=== PATIENT | male | born 1955 | race Caucasian/White ===

== ENCOUNTER 2021-04-16 08:46 | Emergency (ER) | payer MEDICARE, OTHER, SELFPAY ==
--- NOTE | ~2021-04-16 | XR_ITS ---
XR finger 5th LT min 2V DATE: 04/16/2021 10:20 INDICATION: Fell on ice on 04/15/2021. 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 No fracture or dislocation, periosteal reaction or bone destruction is detected. IMPRESSION: No fracture or dislocation is detected Reviewed, dictated and finalized at location A. [employer]
[2021-04-16 09:06] VITALS: BP 181/78; PULSE 86; RESP 20; TEMP 36.6; O2SAT 98
--- NOTE | 2021-04-16 10:35 | ED.UPPEXIN ---
HPI - Extremity Injury (Upper) General Chief Complaint: Extremity Injury, Upper Stated Complaint: fall/left hand injury Time Seen by Provider: 04/16/21 10:35 Source: patient and RN notes reviewed Mode of arrival: ambulatory History of Present Illness HPI narrative: Patient presents today complaining of left fifth finger injury after falling on ice yesterday. Denies numbness or tingling. Currently rates his pain 3/10, which increases with movement. He has tried no medication for symptoms prior to arrival. He is also complaining of a sore on his left buttock that has been present for about a week and causes occasional pain. Patient sits for many hours a day while taking care of his elderly mother. He also sleeps in a recliner in her home. He has been applying antibiotic ointment. MD complaint: injury to: left and finger Related Data Home Medications Medication Instructions Recorded Confirmed amlodipine 5 mg PO DIRECTED 04/16/21 04/16/21 atorvastatin 80 mg PO DIRECTED 04/16/21 04/16/21 losartan 100 mg PO DIRECTED 04/16/21 04/16/21 metoprolol succinate 50 mg PO DIRECTED 04/16/21 04/16/21 Allergies Allergy/AdvReac Type Severity Reaction Status Date / Time No Known Allergies Allergy Verified 04/16/21 10:29 Review of Systems Review of Systems: CONSTITUTIONAL: Denies body aches, fever, chills, or sweats. EYES: Denies visual changes, redness, or discharge. ENT: Denies rhinorrhea, congestion, sore throat, or otalgia. CARDIOVASCULAR: Denies chest pain, palpitations, or edema. RESPIRATORY: Denies cough or dyspnea. GASTROINTESTINAL: Denies abdominal pain, nausea, vomiting, or diarrhea. GENITOURINARY: Denies dysuria or hematuria. SKIN: Denies rash, itching. + Buttock wound MUSCULOSKELETAL: Denies back pain,or myalgia.+ Finger injury NEUROLOGIC: Denies headache, numbness, tingling, or weakness. PSYCH: Denies depression or anxiety. [facility] Past Medical History Medical History (Updated 04/16/21 @ 10:43 by Galilea Stephen, [facility], ) High cholesterol Hypertension Comments At time of signature, I have reviewed and agree with nursing past medical, surgical, social and family history unless otherwise noted. Please see nursing chart for further information. There is no relevant family history pertinent to the presenting complaint Exam Narrative: GENERAL: Well-appearing, well-nourished, and in no acute distress. HEAD: Normocephalic, atraumatic. EYES: EOMI. No redness or drainage. Conjunctivae normal. ENT: Mucous membranes pink and moist. NECK: Normal AROM. CHEST: No respiratory distress. EXTREMITIES: Left fifth finger: Tenderness to the PIP. Moderate edema about the finger. Full range of motion, with increased pain to the PIP. Distal sensation intact. Capillary refill normal. Remainder of the fingers and hand normal. SKIN: Warm, dry, no rash. Capillary refill normal. Normal skin turgor. 1 cm superficial skin ulceration to the medial left buttock, consistent with pressure ulceration. No evidence of current bacterial infection. NEURO: No focal deficits. Alert and oriented x3. Gait steady. PSYCH: Normal affect. No signs of depression or anxiety. Course Course Level of Care: Express Care Visit Vital Signs Vital signs: Vital Signs Temperature 97.8 F 04/16/21 09:06 Pulse Rate 86 04/16/21 09:06 Respiratory Rate 20 04/16/21 09:06 Blood Pressure 181/78 H 04/16/21 09:06 Pulse Oximetry 98 04/16/21 09:06 Temperature 97.8 F 04/16/21 09:06 Pulse Rate 86 04/16/21 09:06 Respiratory Rate 20 04/16/21 09:06 Blood Pressure 181/78 H 04/16/21 09:06 Pulse Oximetry 98 04/16/21 09:06 Reviewed. Pt has been instructed to follow up with his PCP regarding his elevated blood pressure today. Procedures Orthopedic Splinting/Casting Injury #1: Splinting/Casting Date: 04/16/21 Splinting/Casting Time: 09:56 Side: left Upper Extremity Injury Location: finger (Le
== END 2021-04-16 10:35 | disposition home or self-care (01) ==
PROVIDERS: Emergency Provider Nurse Practitioner; PCP Family Medicine
DX: S60.052A Contusion of left little finger without damage to nail, initial encounter (principal); W00.9XXA Unspecified fall due to ice and snow, initial encounter; L89.329 Pressure ulcer of left buttock, unspecified stage; E78.00 Pure hypercholesterolemia, unspecified; I10 Essential (primary) hypertension
CPT/HCPCS: 29130; 73140; 99213; G0463